=== PATIENT | female | born 1955 | race Caucasian/White ===

== ENCOUNTER → 2023-07-24 | Outpatient (CLI) | payer MEDICARE | END | disposition home or self-care (01) | LOC: RESCLI 14:41 | PROVIDERS: ATTEND Internal Medicine | DX: I10 Essential (primary) hypertension (principal); E78.00 Pure hypercholesterolemia, unspecified; E03.9 Hypothyroidism, unspecified; I48.0 Paroxysmal atrial fibrillation; F10.90 Alcohol use, unspecified, uncomplicated; E03.8 Other specified hypothyroidism; E78.5 Hyperlipidemia, unspecified; J30.2 Other seasonal allergic rhinitis; I26.99 Other pulmonary embolism without acute cor pulmonale; Z79.899 Other long term (current) drug therapy; Z98.890 Other specified postprocedural states ==